=== PATIENT | male | born 1945 | race Caucasian/White ===

== ENCOUNTER → 2019-05-31 | Outpatient (CLI) | payer MEDICARE, OTHER ==
[~2019-05-31] MED LIST: AMBIEN 10MG10 MG PO; CENTRUM1 TAB PO; HYZAAR 12.5 MG-1 TA1 PO; NORMODYNE200 MG PO; XANAX0.25 MG PO
== END ==
LOC: COL.VAS 14:16
DX: M79.89 Other specified soft tissue disorders (principal)